=== PATIENT | female | born 1980 | race African-American/Black ===

== ENCOUNTER 2016-11-14 22:01 | Inpatient (IN) ==
--- NOTE | 2016-11-14 22:46 | PROVIDER DOCUMENTATION ---
HPI-Cardiac General - General Chief Complaint: Edema Stated Complaint: SWELLING Time Seen by Provider: 11/14/16 22:26 Allergies/Adverse Reactions: Patient Allergies Allergy/AdvReac Type Severity Reaction Status Date / Time No Known Allergies Allergy Verified 11/14/16 22:22 Home Medications: Home Medication List Medication Instructions Recorded Confirmed Last Taken Type NK [No Home Medications] 11/14/16 11/14/16 Unknown History - History of Present Illness-Cardiac Nature of Presenting Problem: 36 yof c/o generalized swelling and SOB. Pt's has edema from feet all the way to her abdomen. Pt has increased SOB since the swelling has continued to get worse over the past few weeks. Pt using mroe pillows at night when she sleeps. SOB worse when lying flat or with any activity. Quality of Pain: reports: none Onset/Duration: last week Timing: still present, getting worse Context/Activities at Onset: reports: none Modifying Factors: improves with: nothing Palpitation Quality: N/A History of arrythmia: reports: none Recent use of:: reports: no stimulants Associated Symptoms: reports: edema, shortness of breath Similar Symptoms Previously?: No Recently Seen Here or By Another Healthcare Provider: No Review of Systems - Adult - REVIEW OF SYSTEMS - ADULT Constitutional: reports: see HPI Eyes: reports: no symptoms reported Ears, Nose, Mouth & Throat: reports: no symptoms reported Cardiovascular: reports: see HPI, edema Respiratory: reports: see HPI, dyspnea on exertion, shortness of breath Gastrointestinal: reports: no symptoms reported Genitourinary: reports: no symptoms reported Musculoskeletal: reports: no symptoms reported Integumentary: reports: no symptoms reported Neurological: reports: no symptoms reported Psychiatric: reports: no symptoms reported Endocrine: reports: no symptoms reported Hematologic/Lymphatic: reports: no symptoms reported Allergic/Immunologic: reports: no symptoms reported All Other Systems: Reviewed and Negative Past History - Adult - PAST MEDICAL HISTORY-ADULT Review of Records: reports: Old Records Reviewed, Nursing Assessment Review, Medications Reviewed, Social history reviewed & non-contributory. Major Childhood Illnesses: reports: denies history Cardiovascular: reports: HTN, hyperlipidemia Respiratory: reports: asthma Gastrointestinal: reports: denies history Obstetrical/Gynecological: reports: denies history Genitourinary: reports: denies history Musculoskeletal: reports: denies history Neurological: reports: denies history Endocrine/Immune: reports: denies history Other Conditions: reports: denies history - PRIOR SURGERIES/PROCEDURES Surgical/Procedure History: reports: BTL - IMMUNIZATION STATUS Childhood Immunizations: See Nurse Assessment Flu Vaccine: See Nurse Assessment - FAMILY HISTORY Family History: reviewed, not pertinent Physical Exam-General - PHYSICAL EXAM-ADULT Initial Vital Signs Reviewed: Yes - CONSTITUTIONAL General Appearance: appears well, alert, no apparent distress - EYES Eyes: PERRL/EOMI, pink conjunctivae - HEAD, EARS, NOSE, MOUTH & THROAT HENMT: normocephalic/atraumatic, moist mucous membranes, normal ENT inspection - NECK Neck: non-tender, full range of motion, supple, normal inspection - RESPIRATORY Respiratory: chest non-tender, normal breath sounds, no pleuratic chest pain, no respiratory distress, no accessory muscle use, crackles - CARDIOVASCULAR Cardiovascular: normal peripheral pulses, regular rate, rhythm, no gallop, no JVD, no murmur, other (Edema generalized 4+ bilateral legs all the wy to abdomen.) - GASTROINTESTINAL (ABDOMEN) Abdominal Exam: normal bowel sounds, non tender, soft, no organomegaly, no pulsatile mass - LYMPHATIC Lymphatic: no adenopathy - MUSCULOSKELETAL Back Exam: normal inspection, no CVA tenderness, no vertebral tenderness Extremity: normal range of motion, non-tender, normal gait, swelling Peripheral Pulses: radial (R): 2+, radial (L): 2+, dorsalis-pedis (R): 2+, dorsalis-pedis (L): 2+ - SKIN Integumentary: normal color, normal turgor, warm/dry, swelling - NEUROLOGIC Neurologic: grossly normal, no motor/sensory deficits - PSYCHIATRIC Psych/Mental Status: normal mood/affect, normal thought content, normal thought process, oriented x 3 Progress - PLAN OF CARE/RESULTS Progress/Plan/Lab Results: Vital Signs - 8 hr 11/14/16 22:14 11/14/16 23:07 Temperature 97.5 F L Pulse Rate 95 H 89 Respiratory Rate 16 18 Blood Pressure 135/79 120/76 O2 Sat by Pulse Oximetry 90 L 98 Laboratory Results - last 24 hr 11/14/16 11/14/16 11/14/16 22:48 22:48 22:48 WBC RBC Hgb Hct MCV MCH MCHC RDW Std Deviation Plt Count MPV Immature Gran % (Auto) Neut % (Auto) Lymph % (Auto) Kle[place] % (Auto) Eos % (Auto) Baso % (Auto) Immature Gran # (Auto) Neut # (Auto) Lymph # (Auto) Kle[place] # (Auto) Eos # (Auto) Baso # (Auto) D-Dimer Sodium 138 Potassium 3.9 Chloride 96 L Carbon Dioxide 37 H Anion Gap 5 BUN 14 Creatinine 0.9 Estimated GFR/1.73 m2 > 60 BUN/Creatinine Ratio 16 Glucose 128 H Calculated Osmolality 278 Calcium 8.1 L Magnesium 2.4 Total Bilirubin < 0.15 L AST 9 L ALT 7 L Alkaline Phosphatase 91 Creatine Kinase 105 Troponin T < 0.010 Oqy-B-Nummwsxwflb Pept 1044 H Total Protein 6.7 Albumin 3.3 L Globulin 3.0 Albumin/Globulin Ratio 1.0 11/14/16 11/14/16 22:48 22:48 WBC 11.15 H RBC 4.24 Hgb 9.1 L Hct 33.8 L MCV 79.7 L MCH 21.5 L MCHC 26.9 L RDW Std Deviation 19.0 H Plt Count 286 MPV 9.2 Immature Gran % (Auto) 0.2 Neut % (Auto) 74.1 Lymph % (Auto) 19.4 L Kleberg % (Auto) 5.4 Eos % (Auto) 0.7 Baso % (Auto) 0.2 Immature Gran # (Auto) 0.02 Neut # (Auto) 8.27 H Lymph # (Auto) 2.16 Kleberg # (Auto) 0.60 H Eos # (Auto) 0.08 Baso # (Auto) 0.02 D-Dimer 0.92 H Sodium Potassium Chloride Carbon Dioxide Anion Gap BUN Creatinine Estimated GFR/1.73 m2 BUN/Creatinine Ratio Glucose Calculated Osmolality Calcium Magnesium Total Bilirubin AST ALT Alkaline Phosphatase Creatine Kinase Troponin T Msx-G-Djwerhnmzvl Pept Total Protein Albumin Globulin Albumin/Globulin Ratio Orders Category Date Time Status Cardiac Monitoring DIRECTED Care 11/14/16 22:31 Completed Oxygen Therapy- ED Nursing DIRECTED Care 11/14/16 22:31 Active Saline Loc NOW Care 11/14/16 22:31 Active CHEST-2 VIEWS [RAD] Stat Exams 11/14/16 22:31 Completed CBC WITH ELECTRONIC DIFF [HEME] Stat Lab 11/14/16 22:48 Completed CK PROFILE [SP CHEM] Stat Lab 11/14/16 22:48 Completed COMPREHENSIVE METABOLIC PANEL [CHEM] Stat Lab 11/14/16 22:[address] D-D[address]ER [address] [COAG] Stat Lab 11/14/16 22:48 Completed MAGNESIUM [CHEM] Stat Lab 11/14/16 22:48 Completed PRO B-NATRIURETIC PEPTIDE Stat Lab 11/14/16 22:48 Completed TROPONIN T Stat Lab 11/14/16 22:48 Completed Furosemide [Lasix] Med 11/15/16 00:10 Once 60 mg IV NOW ONE EKG [EKG] Stat Ther 11/14/16 22:31 Ordered Result Diagrams: 11/14/16 22:48 11/14/16 22:48 - EKG 1 Time of EKG reading by physician:: 22:43 EKG Read and Signed by:: Favian Deng EKG Interpretation (*Must complete 3 of following elements*): Abnormal Rate: 88 Rhythm: NSR Right BBB [place]: normal QRS: RBB [place] Interval: normal ST Wave: normal Prior EKG Comparison: unchanged from prior - XRAY 1 XRAY Study: Chest Impression: Normal Departure - Departure Date of Disposition Decision: 11/15/16 Time of Disposition Decision: 00:15 DIAGNOSIS: CHF (congestive heart failure) Qualifiers: Congestive heart failure type: unspecified congestive heart failure type Congestive heart failure chronicity: acute Qualified Code(s): I50.9 - Heart failure, unspecified Disposition: ADMITTED INPATIENT 09 Certified Medical Emergency: Emergent Condition: Stable Referrals and Follow-Ups: None,PCP [Primary Care Provider] - - Critical Care Note This patient required my direct & personal management of CC.: No Attestation - Physician/ MARI Attestation Patient care was provided by Advanced Practice Provider:: Yes Advanced Practice Provider:: Colin Bowen Advanced Practice Provider documentation review:: The Mid-level provider documentation, treatment plan and medical decision making was reviewed by the physician who agrees with all treatment and medical decision making by the MLP. The physician spent face to face time with patient:: Yes Advanced Practice Provider documentation review:: The physician spent face to face time with this patient and agrees with all MLP documentation, treatment, and medical decision making by the MLP. See provider notes for further information.
[2016-11-14 23:13] LABS: BASO% 0.2 % (0.0-0.8); EOS# 0.08 X1000 (0.0-0.7); EOS% 0.7 % (0.0-10.0); HEMATOCRIT 33.8 % (37.0-47.0); HEMOGLOBIN 9.1 g/dL (12.0-16.0); IMM GRAN# 0.02 X1000 (0.0-0.04); IMM GRAN% 0.2 % (0.0-0.5); LYMPH# 2.16 X1000 (1.2-3.4); LYMPH% 19.4 % (20.5-51.1); MCH 21.5 PG (27-31); MCHC 26.9 g/dL (33-37); MCV 79.7 FL (81-99); MONO% 5.4 % (1.7-9.3); MPV 9.2 FL (7.4-10.4); NEUT% 74.1 % (42.2-75.2); PLT 286 X1000 (130-400); RBC 4.24 XMIL (4.2-5.4)
[2016-11-14 23:14] LABS: MANUAL DIFF NEEDED? NO
[2016-11-14 23:16] LABS: AGAP 5; ALBUMIN 3.3 g/dL (3.5-5.0); ALKALINE PHOSPHATASE 91 U/L (32-104); BUN 14 mg/dL (8-22); CALCIUM 8.1 mg/dL (8.8-10.2); CHLORIDE 96 mmol/L (98-107); CK PROFILE 105 U/L (24-173); COSMO 278; GOT 9 U/L (10-30); GPT 7 U/L (10-36); MAGNESIUM 2.4 mg/dL (1.5-2.7); POTASSIUM 3.9 mmol/L (3.5-5.1); SODIUM 138 mmol/L (136-145); TCO2 37 mmol/L (25-35); TOTAL BILIRUBIN < 0.15 mg/dL (0.20-1.00); TOTAL PROTEIN 6.7 g/dL (6.3-8.3)
--- NOTE | 2016-11-14 23:48 | Diag Imaging Result Doc PS360 ---
EXAM: CHEST-2 VIEWS HISTORY: SOB TECHNIQUE: COMPARISON: 10/30/2016 FINDINGS: The lungs are well expanded. The heart remains enlarged. The vessels are not distended. No pneumonia. No pleural effusions. IMPRESSION: Stable cardiomegaly. Electronically signed by Vish Nur 11/14/2016 11:46 PM
[2016-11-15] MEDS ORDERED: LASIX IV ONE (00:10)
[2016-11-15 00:55] LABS: URINE CULTURE PL NEEDED? NO
[2016-11-15 01:03] LABS: BILIRUBIN URINE NEGATIVE (NEGATIVE); BLOOD URINE NEGATIVE (NEGATIVE); CLARITY CLEAR (CLEAR); COLOR YELLOW; GLUCOSE URINE NEGATIVE (NEGATIVE); LEUKOCYTES URINE NEGATIVE (NEGATIVE); NITRITE URINE NEGATIVE (NEGATIVE); PH URINE 6.5; PROTEIN URINE TRACE mg/dL (NEGATIVE); UROBILINOGEN URINE NORMAL
[2016-11-15 01:05] LABS: URINE SOURCE CATH
[2016-11-15 01:06] LABS: URINE EPITHELIAL CELLS <10 /HPF (<10); URINE RBC <10 /HPF (<10); URINE WBC <10 /HPF (<10)
--- NOTE | 2016-11-15 05:43 | EKG Report ---
Test Performed on : 11/14/2016 10:43:48 PM Test Reason : CHEST PAIN Blood Pressure : / mmHG Vent. Rate : 088 BPM Atrial Rate : 088 BPM P-R Int : 180 ms QRS Dur : 138 ms QT Int : 404 ms P-R-T Axes : 038 027 035 degrees QTc Int : 488 ms Normal sinus rhythm. Right bundle branch block Abnormal ECG When compared with ECG of 30-OCT-2016 20:17, No significant change was found Unconfirmed Result
[2016-11-15] MEDS: LASIX IV SCH ×2 (08:48→20:35)
[2016-11-15 10:38] LABS: MANUAL DIFF NEEDED? NO
[2016-11-15 10:53] LABS: BASO% 0.2 % (0.0-0.8); EOS# 0.06 X1000 (0.0-0.7); EOS% 0.7 % (0.0-10.0); HEMATOCRIT 35.2 % (37.0-47.0); HEMOGLOBIN 9.5 g/dL (12.0-16.0); IMM GRAN# 0.02 X1000 (0.0-0.04); IMM GRAN% 0.2 % (0.0-0.5); LYMPH# 1.74 X1000 (1.2-3.4); LYMPH% 19.4 % (20.5-51.1); MCH 21.4 PG (27-31); MCV 79.5 FL (81-99); MONO# 0.38 X1000 (0.11-0.59); MONO% 4.2 % (1.7-9.3); MPV 8.5 FL (7.4-10.4); NEUT% 75.3 % (42.2-75.2); PLT 292 X1000 (130-400); RBC 4.43 XMIL (4.2-5.4)
[2016-11-15 11:10] LABS: AGAP 6; ALBUMIN 3.6 g/dL (3.5-5.0); ALKALINE PHOSPHATASE 99 U/L (32-104); BUN 13 mg/dL (8-22); CALCIUM 8.2 mg/dL (8.8-10.2); CHLORIDE 96 mmol/L (98-107); COSMO 285; GOT 11 U/L (10-30); GPT 7 U/L (10-36); POTASSIUM 3.9 mmol/L (3.5-5.1); SODIUM 141 mmol/L (136-145); TCO2 38 mmol/L (25-35)
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
[2016-11-15] MEDS: ULTRAM PO PRN (18:52)
--- NOTE | 2016-11-15 19:37 | ECHO REPORT ---
ORDER DATE: 11/15/2016 INTERPRETING PHYSICIAN: Dr. Alaniz REQUESTING PHYSICIAN: Hospitalist service. CLINICAL INDICATIONS: A 36-year-old female with edema, shortness of breath, hypertension, morbidly obese, weighs 530 pounds. This study is technically very limited. Contrast was used to optimize visualization of cardiac structure. M-MODE MEASUREMENTS: Right ventricle: Dilated up to 4.0 cm. Left ventricle end diastole: 5.2 cm. Left ventricle end systole: 3.3 cm. Posterior wall: 1.2 cm. Interventricular septum: 1.2 cm. Left atrium: 5.5 cm. Aortic root: 2.4 cm. SUMMARY OF 2-DIMENSIONAL IMAGING: The global left ventricular systolic function appears to be normal. Ejection fraction visually estimated to be in the range of 60-65%. With the administration of Definity, the visualization of the apex was optimized and there was no evidence of wall motion abnormality. The right ventricle appears to be again moderately dilated to significantly dilated. The function appears to be grossly normal. The aortic valve appears to be grossly normal. Color flow mapping unremarkable. The mitral valve also appears to be grossly normal. Color flow mapping unremarkable. Pulse wave Doppler of mitral inflow shows relatively normal E/A ratio. Tissue Doppler of septal and lateral mitral annulus was not checked because of difficult study. The tricuspid valve shows a mild degree of regurgitation. The inferior vena cava was not visualized. Pulmonary pressure was elevated in the order of 48 mmHg. The pulmonic valve was grossly unremarkable. Doppler pattern of the pulmonic valve was within normal range. No pericardial effusion, masses or thrombus were noted. IMPRESSION: In summary, this study was technically difficult. The patient was morbidly obese. Definity was used for optimization of the cardiac structures. This study shows preserved left ventricular ejection fraction at 60-65%. There is a moderately enlarged to significantly enlarged right ventricle. There is pulmonary hypertension estimated at 48 mmHg. Valvular structures appear to be grossly normal. Clinical correlation is strongly recommended. cc: MD Silas Jacome MD [facility]
[2016-11-16 06:21] LABS: BASO% 0.1 % (0.0-0.8); EOS# 0.06 X1000 (0.0-0.7); EOS% 0.6 % (0.0-10.0); HEMATOCRIT 37.1 % (37.0-47.0); HEMOGLOBIN 9.7 g/dL (12.0-16.0); HEMOGLOBIN A1C 6.3 % (4.8-6.0); IMM GRAN# 0.05 X1000 (0.0-0.04); IMM GRAN% 0.5 % (0.0-0.5); LYMPH# 1.57 X1000 (1.2-3.4); LYMPH% 15.5 % (20.5-51.1); MCH 21.1 PG (27-31); MCHC 26.1 g/dL (33-37); MCV 80.7 FL (81-99); MONO# 0.51 X1000 (0.11-0.59); MPV 9.2 FL (7.4-10.4); NEUT% 78.3 % (42.2-75.2); PLT 295 X1000 (130-400)
[2016-11-16 06:24] LABS: MANUAL DIFF NEEDED? NO
[2016-11-16] MEDS: ULTRAM PO PRN (06:26)
[2016-11-16 06:28] LABS: AGAP 4; BUN 14 mg/dL (8-22); CALCIUM 8.4 mg/dL (8.8-10.2); CHLORIDE 95 mmol/L (98-107); COSMO 280; POTASSIUM 4.6 mmol/L (3.5-5.1); SODIUM 139 mmol/L (136-145); TCO2 40 mmol/L (25-35)
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
[2016-11-16] MEDS ORDERED: LASIX PO SCH ×2 (09:00→21:00)
[2016-11-16] MEDS ORDERED: NORVASC PO SCH (09:00)
[2016-11-16] MEDS ORDERED: ZOFRAN IV PRN ×2 (12:18→19:21)
--- NOTE | 2016-11-16 14:55 | Diag Imaging Result Doc PS360 ---
CHEST-PORTABLE - 11/16/2016 INDICATION: low O2 sat TECHNIQUE: COMPARISON: 11/14/2016 FINDINGS: Lung volumes are much lower. There is worsening cardiomegaly and pulmonary vascular congestion. There may be some pulmonary edema at this point. IMPRESSION: Overall worsening from prior. Electronically signed by Jackson Vyas 11/16/2016 2:53 PM
[2016-11-16] MEDS ORDERED: VERSED ONE (15:12)
[2016-11-16] MEDS ORDERED: DIPRIVAN 1% ONE (15:13)
[2016-11-16] MEDS ORDERED: DIPRIVAN 1% 3,000 MG/300 ML BOTTLE ONE (15:13)
[2016-11-16 15:28] LABS: BLOOD TYPE ARTERIAL; DRAW SITE R RADIAL; METHB 1.1 % (0.0-1.5); O2(CT) 10.1 mL/dL (15.0-23.0); SAMPLE BLOOD; SAO2 67.2 % (95.0-100.0); THB 11.2 g/dL (11.5-17.4)
[2016-11-16 15:32] LABS: pH(98.6) 7.07 (7.35-7.45)
[2016-11-16 15:33] LABS: PCO2(98.6) > 150 mmHg (35-45); PO2(98.6) 39 mmHg (60-100)
[2016-11-16 15:34] LABS: ALLEN TEST YES; MODALITY VENTIMASK
--- NOTE | 2016-11-16 15:55 | Diag Imaging Result Doc PS360 ---
CHEST-PORTABLE - 11/16/2016 at 1525 INDICATION: intubation TECHNIQUE: COMPARISON: 1434 FINDINGS: There is an endotracheal tube, the tip is probably at the linnea. Recommend retraction by about 2-3 cm. There is a nasogastric tube that is apparently folded over itself in the upper thoracic esophagus, the tip is directed back up towards the pharynx. There has been complete collapse of the right upper lobe. IMPRESSION: See findings. Electronically signed by Jackson Vyas 11/16/2016 3:53 PM
[2016-11-16] MEDS ORDERED: LASIX IV ONE (16:00)
[2016-11-16] MEDS ORDERED: LEVAQUIN 750 MG/D5W 750 MG/150 ML IVPB IV SCH (16:00)
[2016-11-16 16:10] LABS: AGAP 5; ALBUMIN 3.9 g/dL (3.5-5.0); ALKALINE PHOSPHATASE 117 U/L (32-104); BUN 13 mg/dL (8-22); CALCIUM 8.6 mg/dL (8.8-10.2); CHLORIDE 93 mmol/L (98-107); CK PROFILE 162 U/L (24-173); COSMO 282; GOT 12 U/L (10-30); GPT 8 U/L (10-36); MAGNESIUM 2.4 mg/dL (1.5-2.7); POTASSIUM 4.2 mmol/L (3.5-5.1); SODIUM 139 mmol/L (136-145); TCO2 41 mmol/L (25-35); TOTAL PROTEIN 8.3 g/dL (6.3-8.3)
[2016-11-16 16:14] LABS: BASO% 0.1 % (0.0-0.8); EOS# 0.08 X1000 (0.0-0.7); EOS% 0.4 % (0.0-10.0); HEMATOCRIT 40.5 % (37.0-47.0); HEMOGLOBIN 10.5 g/dL (12.0-16.0); IMM GRAN# 0.16 X1000 (0.0-0.04); IMM GRAN% 0.8 % (0.0-0.5); LYMPH# 2.95 X1000 (1.2-3.4); LYMPH% 15.6 % (20.5-51.1); MCH 21.2 PG (27-31); MCHC 25.9 g/dL (33-37); MCV 81.7 FL (81-99); MONO# 0.56 X1000 (0.11-0.59); MPV 8.5 FL (7.4-10.4); NEUT% 80.1 % (42.2-75.2); PLT 339 X1000 (130-400); RBC 4.96 XMIL (4.2-5.4)
[2016-11-16 16:19] LABS: MANUAL DIFF NEEDED? NO
[2016-11-16] MEDS ORDERED: AMIDATE ONE (16:35)
[2016-11-16] MEDS ORDERED: QUELICIN ONE (16:35)
--- NOTE | 2016-11-16 16:39 | EKG Report ---
Test Performed on : 11/16/2016 2:35:10 PM Test Reason : cat call Blood Pressure : / mmHG Vent. Rate : 095 BPM Atrial Rate : 095 BPM P-R Int : 166 ms QRS Dur : 144 ms QT Int : 396 ms P-R-T Axes : 062 148 046 degrees QTc Int : 497 ms Sinus rhythm. with fusion complexes Indeterminate axis Right bundle branch block Abnormal ECG When compared with ECG of 14-NOV-2016 22:43, fusion complexes are now present QRS axis shifted right T wave inversion no longer evident in Anterior leads Confirmed by Roderick Ely MD ([id number]) on 12/20/2016 7:27:56 PM
[2016-11-16 16:50] LABS: BILIRUBIN URINE NEGATIVE (NEGATIVE); BLOOD URINE NEGATIVE (NEGATIVE); CLARITY VERY CLOUDY (CLEAR); COLOR YELLOW; GLUCOSE URINE NEGATIVE (NEGATIVE); LEUKOCYTES URINE NEGATIVE (NEGATIVE); NITRITE URINE NEGATIVE (NEGATIVE); PROTEIN URINE 2+(100 mg/dL) mg/dL (NEGATIVE); SP GRAVITY URINE 1.025; UROBILINOGEN URINE NORMAL
[2016-11-16 16:51] LABS: UR AMPHETAMINES QUAL NONE DETECTED (NONE DETECT); UR BARBITUATES QUAL NONE DETECTED (NONE DETECT); UR BENZODIAZEPIN QUAL NONE DETECTED (NONE DETECT); UR CANNABINOIDS QUAL NONE DETECTED (NONE DETECT); UR COCAINE QUAL NONE DETECTED (NONE DETECT); UR MDMA QUAL NONE DETECTED (NONE DETECT); UR METHADONE QUAL NONE DETECTED (NONE DETECT); UR METHAMPHETAMINE QUAL NONE DETECTED (NONE DETECT); UR OPIATES QUAL NONE DETECTED (NONE DETECT); UR OXYCODONE QUAL NONE DETECTED (NONE DETECT); UR PCP QUAL NONE DETECTED (NONE DETECT); UR TCA QUAL NONE DETECTED (NONE DETECT)
[2016-11-16 17:00] LABS: BE 17.1 mmoll (-3.0-3.0); BLOOD TYPE ARTERIAL; DRAW SITE R RADIAL; METHB 1.4 % (0.0-1.5); O2(CT) 13.5 mL/dL (15.0-23.0); PO2(98.6) 112 mmHg (60-100); SAMPLE BLOOD; SAO2 99.6 % (95.0-100.0); SRATE 18 BPM; THB 9.9 g/dL (11.5-17.4); TVOL 650 mL; pH(98.6) 7.41 (7.35-7.45)
[2016-11-16] MEDS ORDERED: DOXYCYCLINE 100 MG in NS 250 ML IV SCH (17:00)
[2016-11-16 17:06] LABS: URINE CAST GRANULAR PRESENT /LPF; URINE CRYSTAL NONE SEEN /HPF; URINE CULTURE PL NEEDED? YES; URINE EPITHELIAL CELLS >10 /HPF (<10); URINE SOURCE CATH; URINE WBC <10 /HPF (<10)
[2016-11-16 17:09] LABS: MODALITY VENTILATOR; PCO2(98.6) 70 mmHg (35-45)
[2016-11-16 17:10] LABS: ALLEN TEST YES
[2016-11-16] MEDS: DIPRIVAN 1% 1,000 MG/100 ML BOTTLE IV SCH ×8 (17:15→23:59)
[2016-11-16] MEDS ORDERED: LOVENOX SUBQ SCH (17:15)
--- NOTE | 2016-11-16 17:15 | Diag Imaging Result Doc PS360 ---
CHEST-PORTABLE - 11/16/2016 1646 INDICATION: INTUBATION TECHNIQUE: COMPARISON: 1525 FINDINGS: The misplaced nasogastric tube has been removed. The endotracheal tube is in good position now at about T3-T4. The right upper lobe collapse has resolved. There is cardiomegaly. Lungs are essentially clear now. IMPRESSION: Improvement from prior. Electronically signed by Jackson Vyas 11/16/2016 5:12 PM
[2016-11-16] MEDS ORDERED: HEPARIN 25,000 UNITS/D5W 25,000 UNIT/250 ML IV.SOLN IV SCH (17:30)
[2016-11-16] MEDS ORDERED: ULTRAM PO PRN (19:21)
[2016-11-16] MEDS: PROTONIX IV SCH (21:40)
[2016-11-16] MEDS: SODIUM CHLORIDE 0.9% INJ SCH (21:40)
[2016-11-17] MEDS: HEPARIN 25,000 UNITS/D5W 25,000 UNIT/250 ML IV.SOLN IV SCH ×2 (00:21→10:00)
[2016-11-17] MEDS ORDERED: LASIX IV ONE (01:18)
[2016-11-17] MEDS: DIPRIVAN 1% 1,000 MG/100 ML BOTTLE IV SCH ×19 (01:20→23:10)
[2016-11-17] MEDS ORDERED: LASIX ONE (01:28)
[2016-11-17 05:00] LABS: ALLEN TEST YES; BE 17.5 mmoll (-3.0-3.0); BLOOD TYPE ARTERIAL; DRAW SITE R RADIAL; O2(CT) 16.8 mL/dL (15.0-23.0); PCO2(98.6) 47 mmHg (35-45); SAMPLE BLOOD; SAO2 90.6 % (95.0-100.0); THB 13.6 g/dL (11.5-17.4); TVOL 600 mL
[2016-11-17 05:01] LABS: pH(98.6) 7.56 (7.35-7.45)
[2016-11-17 05:02] LABS: MODALITY VENTILATOR; PO2(98.6) 49 mmHg (60-100); SRATE 16 BPM
[2016-11-17 05:24] LABS: BASO% 0.1 % (0.0-0.8); EOS# 0.05 X1000 (0.0-0.7); EOS% 0.4 % (0.0-10.0); HEMATOCRIT 36.1 % (37.0-47.0); HEMOGLOBIN 9.9 g/dL (12.0-16.0); IMM GRAN# 0.07 X1000 (0.0-0.04); IMM GRAN% 0.6 % (0.0-0.5); LYMPH# 1.56 X1000 (1.2-3.4); LYMPH% 13.3 % (20.5-51.1); MANUAL DIFF NEEDED? NO; MCH 21.5 PG (27-31); MCHC 27.4 g/dL (33-37); MCV 78.3 FL (81-99); MONO# 0.53 X1000 (0.11-0.59); MONO% 4.5 % (1.7-9.3); MPV 9.4 FL (7.4-10.4); NEUT% 81.1 % (42.2-75.2); PLT 302 X1000 (130-400); RBC 4.61 XMIL (4.2-5.4)
[2016-11-17] MEDS ORDERED: DOXYCYCLINE 100 MG in NS 250 ML IV SCH (06:00)
[2016-11-17 06:09] LABS: AGAP 12; ALBUMIN 3.2 g/dL (3.5-5.0); ALKALINE PHOSPHATASE 96 U/L (32-104); BUN 15 mg/dL (8-22); CALCIUM 9.1 mg/dL (8.8-10.2); CHLORIDE 92 mmol/L (98-107); COSMO 284; GOT 21 U/L (10-30); GPT 8 U/L (10-36); POTASSIUM 3.4 mmol/L (3.5-5.1); SODIUM 142 mmol/L (136-145); TCO2 38 mmol/L (25-35); TOTAL BILIRUBIN 0.52 mg/dL (0.20-1.00)
--- NOTE | 2016-11-17 07:22 | Diag Imaging Result Doc PS360 ---
EXAM: CHEST-PORTABLE INDICATION: vent, follow up TECHNIQUE: One view COMPARISON: 11/16/2016 FINDINGS: ET tube is in stable position. Inspiration is suboptimal. There has been interval reaeration of the right upper lobe. Pulmonary venous congestion and interstitial edema is similar to the previous study. No new consolidation is identified. Cardiac silhouette is stable. IMPRESSION: Interval re-aeration of the right upper lobe. Stable chest, otherwise. Electronically signed by Clovis Angelo 11/17/2016 7:20 AM
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
[2016-11-17] MEDS: DUONEB (A & A) INH SCH ×3 (08:03→21:55)
--- NOTE | 2016-11-17 08:07 | PROGRESS NOTE ---
DATE: 11/16/2016 SUBJECTIVE: Patient currently is intubated. She had a very acute change in her respiratory status. This morning around 7-8 a.m. she was awake, alert, lying flat in the bed in no respiratory distress. Her daughter left to go molded goods spot picker her grandchild. On upon returning she noted that Ms. Keen was very difficult to arouse, was sitting up and slumped over in the bed and called for help. The nursing staff noted that her O2 saturation was very low and called for respiratory, and subsequently Ms. Keen was intubated. PHYSICAL EXAMINATION: Vital Signs: Temperature 98, pulse 98. BP 163/78. O2 saturation was actually listed at 98% on 2 L prior to this event. Currently 92% on 100% mechanical ventilation. General: Patient is a morbidly obese female. Currently she is sedated and intubated. However, prior to sedation she was very difficult to arouse. She did not follow commands per the staff and was very somnolent. CV: Regular rate. Chest: Equal breath sounds bilaterally on mechanical ventilation. No apparent wheezing. No crackles. Abdomen: Soft. Extremities: Moves all extremities. No change in the edema in her lower extremities. Neurologic: Unable to assess currently as she is sedated. LABS: WBCs 10. ABG prior to intubation 7.07, pCO2 150, pO2 39. After intubation pH 7.4, pCO2 70, pO2 112 on 100% FiO2. CMP unchanged. ASSESSMENT: 1. Acute respiratory failure. Patient had an episode of emesis this morning. Certainly could have aspirated. There was no witness to the 2nd emesis right prior to this event, although it certainly may have occurred. She has an elevated D-dimer. Certainly a pulmonary emboli could be the cause. However she is too large to have a CT scan and too large for a V/Q to be useful. 2. Acute hypercapnic respiratory failure requiring mechanical intubation. 3. Acute hypoxic respiratory failure. 4. Leukocytosis likely more stress-related. 5. Morbid obesity. Certainly expect Ms. Keen has sleep apnea and Pickwickian syndrome. 6. Elevated BNP. In fact her BNP is actually improving. It was 1000 earlier on upon admission, currently is 546. Her recent echo does not demonstrate any congestive heart failure. In fact, her EF is estimated at 60-65%, but given her age it is certainly a very difficult exam. 7. Abnormal chest x-ray. Immediately prior to intubation, her lung volumes were much less. She had pulmonary edema developing. Immediately post intubation she had complete collapse of the right upper lobe that was resolved after the ET tube was moved back. After intubation, her lung volumes improved. Pulmonary edema appeared to resolve. PLAN: Forty-five minutes was spent in total care. Patient is currently stable. She is no longer in any respiratory distress, although she is intubated. Blood pressures are stable. Certainly would leave her intubated at the present time. We did start her on heparin protocol and it is possible that a pulmonary emboli could have triggered this event as noted due to her morbid obesity. She is too large for a CT scan and a V/Q scan. We will transfer her to [facility]. We will consult pulmonology. We did start her on antibiotics for the possibility of an aspiration event causing this. She was given 1 dose of IV Lasix. We will hold after this and follow. Discussed with the family and they [place] understand and are in agreement to transfer. cc: Kenneth Chin MD
[2016-11-17] MEDS ORDERED: HEPARIN 25,000 UNITS/D5W 25,000 UNIT/250 ML IV.SOLN IV SCH (10:15)
[2016-11-17] MEDS: DUONEB (A & A) INH PRN ×2 (11:03→19:07)
[2016-11-17] MEDS: NORVASC PO SCH (11:13)
[2016-11-17] MEDS: LASIX IV SCH ×2 (11:21→17:06)
[2016-11-17] MEDS ORDERED: NS 250 ML ONE (11:21)
--- NOTE | 2016-11-17 11:28 | CONSULTATION ---
DATE OF CONSULTATION: 11/17/2016 REQUESTING PHYSICIAN: Dr. Mo Harden. REASON FOR CONSULTATION: Respiratory failure. HISTORY OF PRESENT ILLNESS: Ms. Keen is a 36-year-old, black female with super obesity (BMI is 84), who presented to [facility] emergency room 11/15/2016 complaining of increasing shortness of breath and increasing edema from her feet to her abdomen. This has been progressive over the last several weeks and she was having to sleep upright. Initial chest x-ray revealed cardiomegaly. The patient was admitted to the hospital. An echocardiogram was performed, which revealed moderate pulmonary hypertension with a PA systolic of 48, but with a study which was significantly limited due to body habitus. Patient was initiated on diuretics. Patient became unresponsive to patient's family and staff. Arterial blood gas revealed a pH of 7.07, pCO2 greater than 50 and a PO2 of 39. The patient was intubated and subsequently transferred to this hospital. Post intubation x-ray revealed atelectasis of the right upper lobe but this resolved on subsequent films. PAST MEDICAL HISTORY: 1. Obesity, as per above. 2. Diabetes mellitus. 3. Hypertension. SOCIAL HISTORY: The patient is a daily tobacco smoker, per nursing intake sheet. FAMILY HISTORY: Positive for asthma but otherwise negative. REVIEW OF SYSTEMS: Cannot be obtained. PHYSICAL EXAMINATION: General: Reveals an obese, black female, who is sedated on propofol and appears comfortable on mechanical ventilation. Vital Signs: Blood pressure 110/78, heart rate 84, respiration rate 22, oxygen saturation 94%. HEENT: Pupils are equal and reactive. Oropharynx reveals increase in clear secretions. Neck: Thick but supple. Chest: Reveals scattered rhonchi bilaterally. Cardiac: Distant heart sounds. Normal S1, normal S2. Abdomen: Obese and soft. Extremities: Reveal extensive edema to the legs. LABORATORIES: Chest x-ray reveals generous cardiac silhouette, increased interstitial markings consistent with pulmonary vascular congestion/edema. Arterial blood gas this morning, pH 7.56, pCO2 of 47, PO2 of 49. White blood count 11.8, hemoglobin 9.9. MCV is low at 78.3, platelet count 302,000. IMPRESSION: A 36-year-old with obesity, Pickwickian status, hypoxemic and hypercapnic respiratory failure, pulmonary hypertension, with acute on chronic cor pulmonale and fluid overload. The patient may have a component of bronchitis. The patient is also an active smoker. RECOMMENDATIONS: 1. Continue ventilatory support until the patient begins diuresing. 2. Check sputum for culture and sensitivity. 3. Routine bronchodilator for pulmonary hygiene. 4. We will initiate tube feeds to prevent protein malnutrition if it appears her ventilator course will be prolonged. 5. Routine gastric acid suppression to prevent stress gastritis. 6. Deep venous thrombosis prophylaxis per the hospitalist service. 7. Smoking cessation. 8. Long-term, her survival will depend on weight loss. cc: Antonio Arauz MD
[2016-11-17] MEDS: MORPHINE IV PRN ×2 (12:38→14:38)
[2016-11-17] MEDS ORDERED: DIPRIVAN 1% ONE (14:11)
[2016-11-17] MEDS ORDERED: QUELICIN (DOSE) ONE (14:11)
--- NOTE | 2016-11-17 14:38 | Diag Imaging Result Doc PS360 ---
EXAM: CHEST-1 VIEW - 11/17/2016 HISTORY: ET tube replacement TECHNIQUE: Portable chest 1405 COMPARISON: 11/17/2016 at 0520 FINDINGS: There is an endotracheal tube with its tip approximately 4.5 cm above the linnea. There is been apparent interval insertion of PICC line from the right, which can be followed to the expected location of the distal superior vena cava. There is stable cardiomegaly. There is been apparent mild decrease in pulmonary edema. There is no pneumothorax identified. IMPRESSION: Tip of endotracheal tube approximately 4.5 cm above the linnea. Tip of PICC line apparently distal superior vena cava. Stable cardiomegaly. Mild decrease in pulmonary edema. Electronically signed by Edwin Zhao 11/17/2016 2:36 PM
[2016-11-17] MEDS: LEVAQUIN 750 MG/D5W 750 MG/150 ML IVPB IV SCH (16:00)
[2016-11-17] MEDS: LOVENOX SUBQ SCH (17:11)
[2016-11-17] MEDS: PROTONIX IV SCH (21:58)
[2016-11-17] MEDS: SODIUM CHLORIDE 0.9% INJ SCH (21:58)
[2016-11-18] MEDS: DIPRIVAN 1% 1,000 MG/100 ML BOTTLE IV SCH ×17 (00:21→22:13)
[2016-11-18] MEDS: LASIX IV SCH ×3 (02:35→17:15)
[2016-11-18] MEDS: DUONEB (A & A) INH PRN ×3 (03:18→19:53)
[2016-11-18] MEDS: LOVENOX SUBQ SCH ×2 (03:41→16:46)
[2016-11-18 04:55] LABS: ALLEN TEST YES; BE 18.9 mmoll (-3.0-3.0); BLOOD TYPE ARTERIAL; DRAW SITE R RADIAL; METHB 1.3 % (0.0-1.5); O2(CT) 12.6 mL/dL (15.0-23.0); PO2(98.6) 84 mmHg (60-100); SAMPLE BLOOD; SAO2 97.7 % (95.0-100.0); SRATE 14 BPM; THB 9.3 g/dL (11.5-17.4); TVOL 600 mL; pH(98.6) 7.54 (7.35-7.45)
[2016-11-18 04:56] LABS: PCO2(98.6) 51 mmHg (35-45)
[2016-11-18 04:57] LABS: MODALITY VENTILATOR
[2016-11-18 07:23] LABS: HEMATOCRIT 34.7 % (37.0-47.0); MCH 21.5 PG (27-31); MCHC 28.8 g/dL (33-37); MCV 74.6 FL (81-99); MPV 9.3 FL (7.4-10.4); RBC 4.65 XMIL (4.2-5.4)
[2016-11-18 07:56] LABS: MAGNESIUM 1.8 mg/dL (1.5-2.7)
[2016-11-18 07:59] LABS: AGAP 16; ALBUMIN 3.3 g/dL (3.5-5.0); ALKALINE PHOSPHATASE 102 U/L (32-104); BUN 13 mg/dL (8-22); CALCIUM 8.3 mg/dL (8.8-10.2); CHLORIDE 90 mmol/L (98-107); COSMO 284; GOT 17 U/L (10-30); GPT 7 U/L (10-36); POTASSIUM 3.2 mmol/L (3.5-5.1); SODIUM 142 mmol/L (136-145); TCO2 36 mmol/L (25-35); TOTAL BILIRUBIN 0.44 mg/dL (0.20-1.00); TOTAL PROTEIN 7.2 g/dL (6.3-8.3)
--- NOTE | 2016-11-18 07:59 | Diag Imaging Result Doc PS360 ---
EXAM: CHEST-PORTABLE - 11/18/2016 HISTORY: vent, follow up TECHNIQUE: Portable chest 0530 COMPARISON: 11/17/2016 at 1405 FINDINGS: Endotracheal tube and PICC remain in place. There is stable cardiomegaly. There has been apparent decrease in basilar edema and/or atelectasis. There is mild residual edema compromise at the right base. Central vascular markings remain mildly prominent. There is no pneumothorax identified. IMPRESSION: Some decrease in basilar edema and/or atelectasis. Electronically signed by Edwin Zhao 11/18/2016 7:56 AM
[2016-11-18] MEDS: NORVASC PO SCH (08:14)
[2016-11-18] MEDS: DUONEB (A & A) INH SCH ×3 (08:25→23:51)
[2016-11-18] MEDS ORDERED: POTASSIUM CHLORIDE 40 MEQ/SWI 40 MEQ/100 ML IVPB IV ONE (08:26)
--- NOTE | 2016-11-18 08:44 | PROGRESS NOTE ---
DATE: 11/18/2016 SUBJECTIVE: Intubated and sedated. Appears comfortable. She is getting quite a bit of propofol. She is not getting her Norvasc. She is n.p.o. She is getting morphine 2 mg IV q. hour as needed, Protonix 40 mg IV 24 hours. OBJECTIVE: Vital signs: Temperature is 98.1 degrees, pulse 85, respirations 14, blood pressure 128/67. Eyes: Pupils are equal and round. Lungs: Clear in all lung constantino. Cardiovascular exam: Regular rhythm and rate without murmur or S3. Abdomen: Soft. Skin: Warm and dry. Blood sugars 517 and 499. Urine output 1600 mL. LABS: White count 9710, hematocrit 34, platelet count 313,000. Sodium 142, potassium 3.2, chloride 90, bicarbonate 36, BUN 13, creatinine 1.2. ASSESSMENT AND PLAN: 1. Respiratory failure. Chest x-ray shows decrease in basilar edema or atelectasis. Will try and wean as able. She is on quite a bit of propofol. 2. Diabetes mellitus type 2. Sugars are quite high. Continue and try to get those down. 3. Morbid obesity. cc: Mo Harden MD
[2016-11-18] MEDS: FENTANYL 1,000 MICROGM in NS 80 ML IV SCH (10:21)
[2016-11-18] MEDS: LEVAQUIN 750 MG/D5W 750 MG/150 ML IVPB IV SCH (16:00)
[2016-11-18] MEDS: PROTONIX IV SCH (22:13)
[2016-11-18] MEDS: SODIUM CHLORIDE 0.9% INJ SCH (22:13)
[2016-11-19] MEDS: DIPRIVAN 1% 1,000 MG/100 ML BOTTLE IV SCH ×14 (00:01→22:41)
[2016-11-19] MEDS ORDERED: LASIX IV SCH (03:15)
[2016-11-19] MEDS: LOVENOX SUBQ SCH ×2 (03:27→16:36)
[2016-11-19] MEDS: FENTANYL 1,000 MICROGM in NS 80 ML IV SCH ×3 (03:50→17:15)
[2016-11-19 04:40] LABS: ALLEN TEST YES; BE 19.6 mmoll (-3.0-3.0); BLOOD TYPE ARTERIAL; DRAW SITE R RADIAL; PO2(98.6) 87 mmHg (60-100); SAMPLE BLOOD; SRATE 14 BPM; THB 10.4 g/dL (11.5-17.4); TVOL 600 mL; pH(98.6) 7.45 (7.35-7.45)
[2016-11-19 04:41] LABS: MODALITY VENTILATOR; PCO2(98.6) 67 mmHg (35-45)
[2016-11-19 05:04] LABS: HEMOGLOBIN 10.2 g/dL (12.0-16.0); MCH 21.7 PG (27-31); MCHC 28.3 g/dL (33-37); MCV 76.6 FL (81-99); MPV 9.3 FL (7.4-10.4); RBC 4.7 XMIL (4.2-5.4)
[2016-11-19 05:22] LABS: AGAP 13; ALBUMIN 3.3 g/dL (3.5-5.0); ALKALINE PHOSPHATASE 107 U/L (32-104); BUN 13 mg/dL (8-22); CALCIUM 8.7 mg/dL (8.8-10.2); CHLORIDE 93 mmol/L (98-107); COSMO 287; GOT 21 U/L (10-30); GPT 9 U/L (10-36); POTASSIUM 3.4 mmol/L (3.5-5.1); SODIUM 144 mmol/L (136-145); TCO2 38 mmol/L (25-35); TOTAL BILIRUBIN 0.62 mg/dL (0.20-1.00); TOTAL PROTEIN 7.6 g/dL (6.3-8.3)
--- NOTE | 2016-11-19 07:37 | Diag Imaging Result Doc PS360 ---
EXAM: CHEST-PORTABLE - 11/19/2016 HISTORY: vent, follow up TECHNIQUE: Portable chest 0515 COMPARISON: 11/18/2016 FINDINGS: Endotracheal tube remains in place with its tip approximately 6 cm above the linnea. PICC remains in place. There is stable cardiomegaly. There is interval decrease in edema or atelectasis at the right base. There has been apparent decrease in central vascular congestion. There is no pneumothorax seen. IMPRESSION: Decrease in right basilar edema or atelectasis. Decrease in central vascular congestion. Electronically signed by Edwin Zhao 11/19/2016 7:35 AM
[2016-11-19] MEDS: DUONEB (A & A) INH SCH ×3 (08:01→22:36)
[2016-11-19] MEDS ORDERED: POTASSIUM CHLORIDE 40 MEQ/SWI 40 MEQ/100 ML IVPB IV ONE ×2 (08:14→14:00)
[2016-11-19] MEDS: NORVASC PO SCH (08:20)
--- NOTE | 2016-11-19 09:23 | PROGRESS NOTE ---
DATE: 11/19/2016 SUBJECTIVE: She is on the ventilator. We have been able to decrease the Diprivan and added fentanyl. Still requiring high sedation. Totally vent dependent. OBJECTIVE: Vital signs: Temp 96.9 degrees, pulse 77, respirations 20, blood pressure 133/84. HEENT: Pupils are equal, round. Lungs: Clear in all lung constantino. Cardiovascular: Regular rhythm and rate without murmur or S3. Abdomen: Soft. Skin: Warm and dry. Intake and output: She has had 1200 mL urine output. LABORATORY: White count 9,420, hematocrit 36, platelet count 281,000. Chemistry: Sodium 144, potassium 3.4, chloride 90, BUN 13, creatinine 1.1, magnesium 1.8. Chest x-ray: Decreased right basilar edema, atelectasis, decrease in central venous vascular congestion. ASSESSMENT AND PLAN: 1. A 36-year-old with Pickwickian status, hypoxemia hypercapnic respiratory failure, pulmonary hypertension, acute on chronic cor pulmonale, fluid overload. Patient seems to be improving radiographically and clinically. May have a component of bronchitis. The patient is also an active smoker. Continue ventilatory support; wean as able. Continue to diurese. Bronchodilators, pulmonary hygiene. 2. May initiate tube feedings to prevent protein malnutrition on the ventilator. 3. Gastric acid suppression. 4. Morbid obesity. 5. Smoking cessation discussed. Nicotine patch recommended. 6. Review again of her labs. Supplement some potassium. Good urine output. 7. Review of her orders. I do not see any change at this point. She is getting Lasix 60 mg IV q.8. Will give her some more potassium. Will probably repeat this 40 mg x2 today. cc: Mo Harden MD
[2016-11-19] MEDS ORDERED: FENTANYL 1,000 MICROGM in NS 80 ML IV SCH ×2 (09:45→16:48)
[2016-11-19] MEDS: D5W 1,000 ML IV SCH (12:00)
[2016-11-19] MEDS: LASIX IV SCH ×3 (12:49→23:21)
[2016-11-19] MEDS: MORPHINE IV PRN (16:35)
[2016-11-19] MEDS: LEVAQUIN 750 MG/D5W 750 MG/150 ML IVPB IV SCH (16:35)
[2016-11-19] MEDS: SODIUM CHLORIDE 0.9% INJ SCH (23:21)
[2016-11-19] MEDS: PROTONIX IV SCH (23:21)
[2016-11-20] MEDS: DIPRIVAN 1% 1,000 MG/100 ML BOTTLE IV SCH ×6 (02:12→08:47)
[2016-11-20] MEDS: MORPHINE IV PRN ×2 (02:13→08:47)
[2016-11-20] MEDS: FENTANYL 1,000 MICROGM in NS 80 ML IV SCH ×2 (02:58→14:29)
[2016-11-20] MEDS: DUONEB (A & A) INH PRN ×3 (03:12→13:32)
[2016-11-20] MEDS: D5W 1,000 ML IV SCH (03:58)
[2016-11-20] MEDS: LOVENOX SUBQ SCH ×2 (03:58→16:05)
[2016-11-20 04:52] LABS: ALLEN TEST YES; BE 15.3 mmoll (-3.0-3.0); BLOOD TYPE ARTERIAL; DRAW SITE R RADIAL; PO2(98.6) 57 mmHg (60-100); SAMPLE BLOOD; SAO2 93.6 % (95.0-100.0); SRATE 14 BPM; TVOL 600 mL; pH(98.6) 7.48 (7.35-7.45)
[2016-11-20 04:53] LABS: MODALITY VENTILATOR; PCO2(98.6) 55 mmHg (35-45)
[2016-11-20] MEDS: LASIX IV SCH ×3 (05:19→17:54)
[2016-11-20 06:02] LABS: HEMATOCRIT 35.7 % (37.0-47.0); HEMOGLOBIN 9.9 g/dL (12.0-16.0); MCH 21.8 PG (27-31); MCHC 27.7 g/dL (33-37); MCV 78.6 FL (81-99); MPV 9.5 FL (7.4-10.4); RBC 4.54 XMIL (4.2-5.4)
[2016-11-20 06:27] LABS: AGAP 13; ALBUMIN 3.2 g/dL (3.5-5.0); ALKALINE PHOSPHATASE 112 U/L (32-104); BUN 14 mg/dL (8-22); CALCIUM 9.2 mg/dL (8.8-10.2); CHLORIDE 92 mmol/L (98-107); COSMO 282; GOT 35 U/L (10-30); GPT 20 U/L (10-36); SODIUM 141 mmol/L (136-145); TCO2 36 mmol/L (25-35); TOTAL BILIRUBIN 0.75 mg/dL (0.20-1.00)
--- NOTE | 2016-11-20 07:18 | Diag Imaging Result Doc PS360 ---
EXAM: CHEST-PORTABLE HISTORY: vent, follow up TECHNIQUE: Portable AP COMPARISON: 11/19/2016 FINDINGS: The endotracheal tube remains in good position. No change in the right subclavian portacatheter. The heart remains enlarged. There is central vascular prominence. No pleural effusions identified. The overall appearance is similar to that of the prior exam. IMPRESSION: No interval improvement. Electronically signed by Vish Nur 11/20/2016 7:15 AM
[2016-11-20] MEDS: DUONEB (A & A) INH SCH ×3 (07:49→19:38)
[2016-11-20] MEDS: NORVASC PO SCH (08:02)
[2016-11-20 10:47] LABS: ALLEN TEST YES; BE 16.7 mmoll (-3.0-3.0); BLOOD TYPE ARTERIAL; DRAW SITE R RADIAL; METHB 1.1 % (0.0-1.5); O2(CT) 14.6 mL/dL (15.0-23.0); PO2(98.6) 70 mmHg (60-100); SAMPLE BLOOD; SAO2 95.6 % (95.0-100.0); THB 11.2 g/dL (11.5-17.4)
[2016-11-20 10:49] LABS: MODALITY VENTILATOR; PCO2(98.6) 72 mmHg (35-45)
--- NOTE | 2016-11-20 15:56 | PROGRESS NOTE ---
DATE: 11/20/2016 SUBJECTIVE: Ms. Keen still is sedated, ventilatory dependent. OBJECTIVE: Vital signs: Remains afebrile, temp 97.6 degrees, pulse 80, respirations 21, blood pressure 111/76. Lungs: Clear anterolateral. Cardiovascular: Regular rhythm and rate without murmur or S3. Abdomen: Soft. Skin: Warm and dry. Intake and output: Urine output was over 5 L. LAB: Unremarkable. CBC: Hematocrit stable at 35. Chemistry is unremarkable. ASSESSMENT AND PLAN: 1. Respiratory failure. Chest x-ray: Endotracheal tube in good position. No changes in the right subclavian port catheter. No interval improvement noted. There is central vascular prominence. The patient is an active smoker. Continue to try and wean. It has been very slow. We have had to go up on her FiO2 yesterday. Continue pulmonary hygiene and bronchodilators. 2. May need to initiate tube feedings. 3. Gas acid suppression, 4. Morbid obesity. REVIEW OF PRESENT ORDERS: I do not see any change. Still on Levaquin. Patient given fentanyl drip to help with analgesia. On propofol. Potassium supplemented. Electrolytes look good. cc: Mo Harden MD
[2016-11-20] MEDS: LEVAQUIN 750 MG/D5W 750 MG/150 ML IVPB IV SCH (16:04)
[2016-11-20] MEDS ORDERED: CHLORASEPTIC SPRAY MT PRN (20:29)
[2016-11-20] MEDS: PROTONIX IV SCH (21:09)
[2016-11-21] MEDS: LASIX IV SCH ×6 (00:02→23:59)
[2016-11-21] MEDS: MORPHINE IV PRN (00:02)
[2016-11-21] MEDS: FENTANYL 1,000 MICROGM in NS 80 ML IV SCH (00:44)
[2016-11-21] MEDS: LOVENOX SUBQ SCH ×2 (04:18→15:06)
[2016-11-21 05:42] LABS: ALLEN TEST YES; BE 14.2 mmoll (-3.0-3.0); BLOOD TYPE ARTERIAL; DRAW SITE L BRACHIAL; METHB 1.2 % (0.0-1.5); O2(CT) 15.7 mL/dL (15.0-23.0); PO2(98.6) 108 mmHg (60-100); SAMPLE BLOOD; SAO2 98.9 % (95.0-100.0); THB 11.5 g/dL (11.5-17.4); pH(98.6) 7.44 (7.35-7.45)
[2016-11-21 05:44] LABS: MODALITY BI PAP; PCO2(98.6) 60 mmHg (35-45)
[2016-11-21 05:46] LABS: HEMATOCRIT 38.8 % (37.0-47.0); HEMOGLOBIN 10.8 g/dL (12.0-16.0); MCH 22.2 PG (27-31); MCHC 27.8 g/dL (33-37); MCV 79.8 FL (81-99); MPV 9.4 FL (7.4-10.4); RBC 4.86 XMIL (4.2-5.4)
[2016-11-21 06:11] LABS: AGAP 10; ALBUMIN 3.7 g/dL (3.5-5.0); ALKALINE PHOSPHATASE 120 U/L (32-104); BUN 17 mg/dL (8-22); CALCIUM 9.9 mg/dL (8.8-10.2); CHLORIDE 90 mmol/L (98-107); COSMO 277; GOT 34 U/L (10-30); GPT 22 U/L (10-36); POTASSIUM 4.2 mmol/L (3.5-5.1); SODIUM 138 mmol/L (136-145); TCO2 38 mmol/L (25-35); TOTAL BILIRUBIN 0.55 mg/dL (0.20-1.00); TOTAL PROTEIN 8.6 g/dL (6.3-8.3)
--- NOTE | 2016-11-21 07:25 | Diag Imaging Result Doc PS360 ---
EXAM: CHEST-PORTABLE HISTORY: vent, follow up TECHNIQUE: AP portable erect at 0545 COMMENT: There is cardiomegaly. The endotracheal tube has apparently been removed since the previous study. There is apparent mild interstitial pulmonary edema in both lung bases. IMPRESSION: Cardiomegaly and mild pulmonary edema. Electronically signed by Merlin Plummer 11/21/2016 7:23 AM
[2016-11-21] MEDS: DUONEB (A & A) INH SCH ×3 (07:39→19:02)
[2016-11-21] MEDS: NORVASC PO SCH (08:05)
--- NOTE | 2016-11-21 09:51 | PROGRESS NOTE ---
DATE: 11/21/2016 SUBJECTIVE: This patient was recently extubated yesterday. She states that she is feeling better. I will try to do a bedside swallow evaluation to see if she can tolerate food today. She is not complaining of any specific problem at this moment, just mild throat discomfort. OBJECTIVE: Vital Signs: Temperature 98.6 degrees, pulse 93, respiratory rate 26 blood pressure 126/69. Oxygen saturation 94% on a Ventimask, 15% oxygen flow. General: A 36-year-old female with morbid obesity, in no acute distress. HEENT: Head normocephalic. No trauma. PERRLA. Neck: Supple. I cannot see JVD because of her neck size, obesity. Chest: Decreased breath sounds globally. Cardiovascular: RRR. Abdomen: Soft, nontender, nondistended. No hepatosplenomegaly. Extremities: No edema. No clubbing. No cyanosis. Obese. Neurological examination: The patient is alert and oriented x3. No focal neurological deficits. LABORATORY: WBC 8.8, hemoglobin 10.8, hematocrit 38.8, platelets 232. Sodium 138, potassium 4.2 chloride 90, bicarbonate 38. BUN 17, creatinine 1. Glucose 96, calcium 9.9, albumin 3.7. ASSESSMENT AND PLAN: 1. Acute hypoxemic and hypercapnic respiratory failure. This patient was recently extubated yesterday. She is doing better. She is alert and oriented times 3. She is still requiring high oxygen flow. Pulmonary Department is following this patient. We will continue to monitor. 2. Pulmonary hypertension with cor pulmonale. This patient has been having fluid overload. For now, we will continue with Lasix 40 mg intravenous every 6 hours and we will readjust the dose as needed. 3. Hypertension, stable. Will monitor. 4. Back pain. She is not complaining of back pain at this moment. We will monitor. 5. Diabetes mellitus. Her hemoglobin A1c is 6.3. As per the patient, she has been on metformin before, but she states that she has never been told that she has diabetes. 6. Morbid obesity. Aware. We will try to start feeding this patient, on a healthy diet and diabetic diet. As per the patient, she is ready to loose weight. 7. Physical deconditioning. Once this patient is out of the intensive care unit , we will start this patient on physical therapy. 8. Deep vein thrombosis prophylaxis. Continue with Lovenox. CRITICAL CARE TIME: 35 minutes. cc: Silas Goncalves MD MTDD
[2016-11-21] MEDS: LEVAQUIN 750 MG/D5W 750 MG/150 ML IVPB IV SCH (15:06)
[2016-11-21] MEDS ORDERED: BLISTEX MEDICATED BERRY LIP BALM TOP PRN (19:31)
[2016-11-21] MEDS: PROTONIX IV SCH (22:06)
[2016-11-21] MEDS: SODIUM CHLORIDE 0.9% INJ SCH (22:06)
[2016-11-22] MEDS: LOVENOX SUBQ SCH ×2 (04:17→15:47)
[2016-11-22 04:18] LABS: ALLEN TEST YES; BE 17.7 mmoll (-3.0-3.0); BLOOD TYPE ARTERIAL; DRAW SITE L RADIAL; METHB 0.9 % (0.0-1.5); O2(CT) 15.7 mL/dL (15.0-23.0); PO2(98.6) 115 mmHg (60-100); SAMPLE BLOOD; THB 11.5 g/dL (11.5-17.4); pH(98.6) 7.29 (7.35-7.45)
[2016-11-22 04:19] LABS: MODALITY BI PAP; PCO2(98.6) 101 mmHg (35-45)
[2016-11-22 05:25] LABS: AGAP 11; BUN 22 mg/dL (8-22); CALCIUM 9.9 mg/dL (8.8-10.2); CHLORIDE 87 mmol/L (98-107); COSMO 278; POTASSIUM 3.9 mmol/L (3.5-5.1); SODIUM 138 mmol/L (136-145); TCO2 40 mmol/L (25-35)
[2016-11-22] MEDS: LASIX IV SCH ×3 (05:42→17:16)
[2016-11-22] MEDS: MORPHINE IV PRN (05:42)
--- NOTE | 2016-11-22 07:35 | Diag Imaging Result Doc PS360 ---
CHEST-PORTABLE - 11/22/2016 INDICATION: vent, follow up TECHNIQUE: COMPARISON: 11/21/2016 FINDINGS: Stable right PICC line in good position. Stable severe cardiomegaly with pulmonary vascular congestion. No significant infiltrates or edema. Lung volumes remain severely low. IMPRESSION: No change from prior. Electronically signed by Jackson Vyas 11/22/2016 7:33 AM
[2016-11-22] MEDS: NORVASC PO SCH (08:24)
[2016-11-22] MEDS: DUONEB (A & A) INH SCH ×3 (09:12→19:42)
[2016-11-22 09:51] LABS: ALLEN TEST YES; BE 19.2 mmoll (-3.0-3.0); BLOOD TYPE ARTERIAL; DRAW SITE R RADIAL; METHB 0.6 % (0.0-1.5); O2(CT) 14.6 mL/dL (15.0-23.0); PO2(98.6) 93 mmHg (60-100); SAMPLE BLOOD; THB 10.7 g/dL (11.5-17.4)
[2016-11-22 09:52] LABS: MODALITY BI PAP
[2016-11-22 09:53] LABS: PCO2(98.6) 101 mmHg (35-45)
--- NOTE | 2016-11-22 10:09 | PROGRESS NOTE ---
DATE: 11/22/2016 SUBJECTIVE: This patient is using a BiPAP machine right now. As per the patient, she is not having shortness of breath but she has generalized weakness. She is following commands and answering my questions properly. OBJECTIVE: Vital Signs: Temperature 97.8 degrees, pulse 95, respiratory rate 22, blood pressure 108/60, oxygen saturation 95% on BiPAP. HEENT: Head normocephalic. No trauma. PERRLA. Neck: Supple. I cannot see JVD because of her neck size, obesity. Chest: Decreased breath sounds globally. Cardiovascular: RRR. Abdomen: Soft, nontender, nondistended. No hepatosplenomegaly. Obese. Extremities: No edema. No clubbing. No cyanosis. Neurological: The patient is alert. She is following commands. She is moving all 4 extremities. She is answering my questions. LABORATORY: ABGs, pH 7.29, pCO2 101, PO2 115, bicarbonate 38.7. Sodium 138, potassium 3.8, chloride 87, bicarbonate 40, BUN 22, creatinine 0.9, glucose 87, calcium 9.9, magnesium 2. ASSESSMENT AND PLAN: 1. Probably acute on chronic hypercapnic respiratory failure. This patient was recently extubated a couple days ago. She is using the BiPAP machine. Today her CO2 elevated to 101, so we are going to continue with the BiPAP machine. Pulmonary department is following this patient closely. Continue to monitor. 2. Pulmonary hypertension with cor pulmonale. Patient has been having fluid overload. For now will continue with IV Lasix. Continue with diuresis. We have a negative balance of 2.3 L. The kidney function is normal today. 3. Hypertension, stable. Will monitor. 4. Back pain. She is not complaining of back pain at this moment. We will monitor. 5. Diabetes mellitus. Her hemoglobin A1c is 6.3. I do not think she has been treated for this problem before even though she has been on metformin. As per the patient, the Metformin is to lose weight. 6. Morbid obesity. Aware. She is on a diet but she cannot eat at this moment because of the BiPAP machine. Once she is better we will restart the diet. 7. Physical deconditioning. Once this patient is out of the intensive care unit will start this patient on physical therapy. 8. Deep vein thrombosis prophylaxis. Will continue with Lovenox. CRITICAL CARE TIME: 35 minutes. cc: Silas Goncalves MD
[2016-11-22] MEDS: LEVAQUIN 750 MG/D5W 750 MG/150 ML IVPB IV SCH (15:47)
[2016-11-22] MEDS: SODIUM CHLORIDE 0.9% INJ SCH (21:37)
[2016-11-22] MEDS: PROTONIX IV SCH (21:37)
[2016-11-23] MEDS: LASIX IV SCH ×4 (01:13→19:45)
[2016-11-23 04:40] LABS: ALLEN TEST YES; BE 20.4 mmoll (-3.0-3.0); BLOOD TYPE ARTERIAL; DRAW SITE R RADIAL; METHB 1.2 % (0.0-1.5); O2(CT) 15.4 mL/dL (15.0-23.0); PO2(98.6) 116 mmHg (60-100); SAMPLE BLOOD; SAO2 98.8 % (95.0-100.0); THB 11.3 g/dL (11.5-17.4); pH(98.6) 7.37 (7.35-7.45)
[2016-11-23 04:41] LABS: MODALITY BI PAP; PCO2(98.6) 86 mmHg (35-45)
[2016-11-23] MEDS: LOVENOX SUBQ SCH ×2 (04:49→15:14)
[2016-11-23 05:22] LABS: BASO% 0.1 % (0.0-0.8); EOS# 0.07 X1000 (0.0-0.7); EOS% 0.7 % (0.0-10.0); HEMATOCRIT 38.6 % (37.0-47.0); HEMOGLOBIN 10.5 g/dL (12.0-16.0); IMM GRAN# 0.03 X1000 (0.0-0.04); IMM GRAN% 0.3 % (0.0-0.5); LYMPH# 1.47 X1000 (1.2-3.4); MANUAL DIFF NEEDED? NO; MCH 21.3 PG (27-31); MCHC 27.2 g/dL (33-37); MCV 78.5 FL (81-99); MONO# 1.01 X1000 (0.11-0.59); MONO% 10.3 % (1.7-9.3); NEUT% 73.6 % (42.2-75.2); PLT 268 X1000 (130-400); RBC 4.92 XMIL (4.2-5.4)
[2016-11-23 06:03] LABS: AGAP 12; BUN 25 mg/dL (8-22); CALCIUM 9.6 mg/dL (8.8-10.2); CHLORIDE 84 mmol/L (98-107); COSMO 281; POTASSIUM 3.7 mmol/L (3.5-5.1); SODIUM 139 mmol/L (136-145); TCO2 43 mmol/L (25-35)
--- NOTE | 2016-11-23 07:35 | Diag Imaging Result Doc PS360 ---
EXAM: CHEST-PORTABLE INDICATION: vent, follow up TECHNIQUE: One view COMPARISON: 11/22/2016 FINDINGS: Right PICC line is in stable position. There has been slight improvement of interstitial edema and pulmonary venous congestion. There is stable cardiomegaly. No new consolidation is identified. IMPRESSION: Slight improvement of pulmonary venous congestion and edema. Electronically signed by Clovis Angelo 11/23/2016 7:33 AM
[2016-11-23] MEDS: NORVASC PO SCH (08:25)
[2016-11-23] MEDS: DUONEB (A & A) INH SCH ×3 (09:18→19:34)
--- NOTE | 2016-11-23 14:48 | PROGRESS NOTE ---
DATE: 11/23/2016 SUBJECTIVE: This patient has been using the BiPAP machine, every time we tried to wean this patient to a nasal cannula this patient's oxygen saturation decreased. This patient is hungry so I will allow a short period of time to eat and then she needs to use the BiPAP machine again. OBJECTIVE: Vital Signs: Temperature 98.3 degrees, pulse 95, respiratory rate 22, blood pressure 107/75, oxygen saturation 87 on 4 L of nasal cannula. HEENT: Head normocephalic. No trauma. PERRLA. Neck: Supple. I cannot see a JVD because of her neck size, obesity. Chest: Decreased breath sounds globally. Cardiovascular: RRR. Abdomen: Soft, nontender, nondistended. Obese. Extremities: 1+ lower extremity edema. No clubbing. No cyanosis. Neurological: The patient is alert. She is oriented. She is following commands. She is moving all 4 extremities. She is answering all my questions. LABORATORY: WBC 9.8, hemoglobin 10.5, hematocrit 38.6, platelets 268,000. Sodium 139, potassium 3.7, chloride 84, bicarbonate 43, BUN 25, creatinine 0.9, glucose 88, calcium 9.6. ASSESSMENT AND PLAN: 1. Acute on chronic hypercapnic respiratory failure. This patient was extubated a few days ago, she is still using the BiPAP machine. Her CO2 has been elevated, I will allow a grief period of time so she can eat and then we need to put her back on the BiPAP machine. Pulmonary department is following this patient. Continue to monitor. 2. Pulmonary hypertension with cor pulmonale. Patient has been having fluid overload. For now we will continue with IV Lasix but I will decrease the IV Lasix from every 6 hours to every 12 hours. Her BUN has been increasing slowly, today is 25, her creatinine is normal. 3. Back pain. She is not complaining of back pain at this moment. We will monitor. 4. Diabetes mellitus. Her hemoglobin A1c is 6.3. She has been on metformin before. As per the patient, she has been taking this treatment to lose weight, not because she has diabetes. 5. Morbid obesity. Aware. Continue with the same diet. 6. Physical deconditioning. Physical therapy has been consulted. 7. Deep vein thrombosis prophylaxis. Continue with Lovenox. CRITICAL CARE TIME: 35 minutes. cc: Silas Goncalves MD MTDD
[2016-11-23] MEDS: LEVAQUIN 750 MG/D5W 750 MG/150 ML IVPB IV SCH (15:14)
[2016-11-23] MEDS: PROTONIX IV SCH (21:14)
[2016-11-23] MEDS: SODIUM CHLORIDE 0.9% INJ SCH (21:14)
[2016-11-24] MEDS: LOVENOX SUBQ SCH ×2 (03:07→15:43)
[2016-11-24 05:06] LABS: BASO% 0.2 % (0.0-0.8); EOS# 0.09 X1000 (0.0-0.7); EOS% 0.9 % (0.0-10.0); HEMATOCRIT 37.6 % (37.0-47.0); HEMOGLOBIN 10.4 g/dL (12.0-16.0); IMM GRAN# 0.03 X1000 (0.0-0.04); IMM GRAN% 0.3 % (0.0-0.5); LYMPH% 19.1 % (20.5-51.1); MANUAL DIFF NEEDED? NO; MCH 21.4 PG (27-31); MCHC 27.7 g/dL (33-37); MCV 77.4 FL (81-99); MONO# 0.92 X1000 (0.11-0.59); MONO% 9.2 % (1.7-9.3); MPV 8.8 FL (7.4-10.4); NEUT% 70.3 % (42.2-75.2); PLT 254 X1000 (130-400); RBC 4.86 XMIL (4.2-5.4)
[2016-11-24 05:36] LABS: AGAP 13; BUN 29 mg/dL (8-22); CALCIUM 10.5 mg/dL (8.8-10.2); CHLORIDE 84 mmol/L (98-107); COSMO 284; POTASSIUM 3.4 mmol/L (3.5-5.1); SODIUM 139 mmol/L (136-145); TCO2 42 mmol/L (25-35)
--- NOTE | 2016-11-24 07:34 | Diag Imaging Result Doc PS360 ---
EXAM: CHEST-PORTABLE HISTORY: vent, follow up TECHNIQUE: AP portable at 0500 COMMENT: Compared to the previous study of 11/23/2016 there is increasing opacification in the lower lung constantino consistent with pulmonary edema. IMPRESSION: Worsened pulmonary edema. Electronically signed by Merlin Plummer 11/24/2016 7:32 AM
[2016-11-24] MEDS: DUONEB (A & A) INH SCH ×3 (07:40→19:35)
[2016-11-24 08:07] LABS: ALLEN TEST YES; BE 25.1 mmoll (-3.0-3.0); BLOOD TYPE ARTERIAL; DRAW SITE R RADIAL; METHB 1.5 % (0.0-1.5); O2(CT) 13.3 mL/dL (15.0-23.0); SAMPLE BLOOD; SAO2 85.5 % (95.0-100.0); THB 11.5 g/dL (11.5-17.4); pH(98.6) 7.44 (7.35-7.45)
[2016-11-24 08:09] LABS: MODALITY CANNULA; PCO2(98.6) 79 mmHg (35-45); PO2(98.6) 46 mmHg (60-100)
[2016-11-24] MEDS ORDERED: KLOR-CON PO ONE (08:34)
[2016-11-24] MEDS: NORVASC PO SCH (09:14)
[2016-11-24] MEDS: LASIX IV SCH ×3 (09:14→20:32)
--- NOTE | 2016-11-24 14:19 | PROGRESS NOTE ---
DATE: 11/24/2016 SUBJECTIVE: This patient looks a little bit better today. She is still using the BiPAP machine, she is tolerating p.o., Pulmonary Department is following this patient closely. OBJECTIVE: Vital Signs: Temperature 98.5 degrees, pulse 88, respiratory rate 27, blood pressure 122/86, oxygen saturation 94% on BiPAP 60% FiO2. HEENT: Head normocephalic. No trauma. PERRLA. Neck: I cannot see a JVD because of her neck size, obesity. Chest: Decreased breath sounds globally mostly at the bases. Cardiovascular: RRR. Abdomen: Soft, nontender, nondistended, obese. Extremities: 1+ lower extremity edema. No clubbing. No cyanosis. Neurological: This patient is alert. She is oriented x3. She is following commands. She is moving all 4 extremities. LABORATORY: WBC 9.9, hemoglobin 10.4, hematocrit 37.6, platelets 254,000. Sodium 139, potassium 3.4, chloride 84, bicarbonate 42, BUN 29, creatinine 0.9, glucose 116, calcium 7.5. ASSESSMENT AND PLAN: 1. Acute on chronic hypercapnic respiratory failure. This patient was extubated a few days ago. She is still using the BiPAP machine. Her CO2 has been elevated but compared with the previous days is a little bit better. Pulmonary Department following this patient closely. Continue to monitor. 2. Pulmonary hypertension with cor pulmonale. Continue with Lasix. Today the chest x-ray showed worsening pulmonary edema so I will increase the dose of IV Lasix from 40 IV q.12 hours to 40 IV q.6 hours. 3. Back pain. She is not complaining of back pain at this moment. We will monitor. 4. Diabetes mellitus. Her hemoglobin A1c is 6.3, she has been taking metformin before, as per the patient, she has been taking this treatment to lose weight, not because of her diabetes. 5. Morbid obesity. Aware. Continue with the same diet. 6. Physical deconditioning. Physical Therapy has been consulted. 7. Deep venous thrombosis prophylaxis. Continue with Lovenox. 8. Hypokalemia. I will replace the potassium. CRITICAL CARE TIME: 35 minutes. cc: Silas Goncalves MD
[2016-11-24] MEDS: LEVAQUIN 750 MG/D5W 750 MG/150 ML IVPB IV SCH (15:43)
[2016-11-24] MEDS: PROTONIX IV SCH (22:23)
[2016-11-24] MEDS: SODIUM CHLORIDE 0.9% INJ SCH (22:23)
[2016-11-25] MEDS: LASIX IV SCH ×4 (03:57→18:16)
[2016-11-25] MEDS: LOVENOX SUBQ SCH ×2 (03:57→18:16)
[2016-11-25 06:53] LABS: AGAP 7; BUN 31 mg/dL (8-22); CALCIUM 9.8 mg/dL (8.8-10.2); CHLORIDE 84 mmol/L (98-107); COSMO 278; SODIUM 135 mmol/L (136-145); TCO2 44 mmol/L (25-35)
--- NOTE | 2016-11-25 07:12 | Diag Imaging Result Doc PS360 ---
EXAM: CHEST-PORTABLE HISTORY: vent, follow up TECHNIQUE: AP portable at 0500 COMMENT: There is cardiomegaly. Compared to the previous study of 11/24/2016 there has been some clearing of the right base. No additional findings are present. IMPRESSION: Improved pulmonary edema. Electronically signed by Merlin Plummer 11/25/2016 7:09 AM
[2016-11-25] MEDS: DUONEB (A & A) INH SCH ×3 (08:18→20:00)
[2016-11-25] MEDS ORDERED: KLOR-CON PO ONE (08:24)
[2016-11-25] MEDS: NORVASC PO SCH (09:25)
[2016-11-25] MEDS ORDERED: AYR NASAL SPRAY NAS PRN (09:29)
--- NOTE | 2016-11-25 11:39 | PROGRESS NOTE ---
DATE: 11/25/2016 SUBJECTIVE: This patient looks better today. She is using the nasal cannula and she is tolerating it he her O2 saturation has been above 90. She is tolerating p.o. as well. Since this patient looks better, I will transfer this patient to the floor. OBJECTIVE: Vital Signs: Temperature 97.5 degrees, pulse respiratory rate 18, blood pressure 141/95, oxygen saturation 96 on 6 L of nasal cannula. HEENT: Normocephalic. No trauma. PERRLA. Neck: I cannot see JVD because of her neck size, obesity. Chest: Decreased breath sounds globally mostly at the bases. Cardiovascular: RRR. Abdomen: Soft, nontender, nondistended. Obese. Extremities: With 1+ lower extremity edema. No clubbing. No cyanosis. Neurologic: This patient is alert. She is oriented x3. She is following commands. She is moving all 4 extremities. LABORATORY: Sodium 135, potassium 3., chloride 84, bicarbonate 44, BUN 31, creatinine 1, glucose 127, calcium 9.8. ASSESSMENT AND PLAN: 1. Acute on chronic hypercapnic respiratory failure. This patient was extubated a few days ago. She has been using the BiPAP machine. At this moment, she is on nasal cannula. She is completely alert and oriented x3. No respiratory distress. I will transfer this patient to the floor. Pulmonary Department following this patient. 2. Pulmonary hypertension with cor pulmonale. Continue with Lasix. Chest x-ray today is better with improvement of the pulmonary edema, the dose of Lasix has been decreased from 40 q.6 hours to 40 q.8 hours. We will continue to monitor. 3. Hypokalemia, I will replace the potassium. This is likely secondary to her treatment with Lasix. 4. Back pain. She is not complaining of back pain at this moment. We will monitor. 5. Type 2 diabetes. Her hemoglobin A1c is 6.3, she has been taking Metformin before. As per the patient, she has been taking this treatment to lose weight not because of her diabetes. 6. Morbid obesity, aware. Continue with the same diet. 7. Physical deconditioning. Continue with physical therapy. 8. Deep vein thrombosis prophylaxis with Lovenox . CRITICAL CARE TIME: 35 minutes. cc: Silas Goncalves MD
[2016-11-25] MEDS ORDERED: TEARISOL OPH SOLUTION BOTH EYES PRN (14:08)
[2016-11-25] MEDS ORDERED: MOTRIN PO ONE (14:51)
[2016-11-25 18:17] LABS: ALLEN TEST YES; BE 23.4 mmoll (-3.0-3.0); BLOOD TYPE ARTERIAL; DRAW SITE R RADIAL; METHB 0.9 % (0.0-1.5); O2(CT) 14.7 mL/dL (15.0-23.0); PO2(98.6) 68 mmHg (60-100); SAMPLE BLOOD; SAO2 95.9 % (95.0-100.0); THB 11.2 g/dL (11.5-17.4); pH(98.6) 7.47 (7.35-7.45)
[2016-11-25] MEDS: LEVAQUIN 750 MG/D5W 750 MG/150 ML IVPB IV SCH (18:17)
[2016-11-25 18:18] LABS: MODALITY CANNULA
[2016-11-25 18:20] LABS: PCO2(98.6) 70 mmHg (35-45)
[2016-11-25] MEDS: PROTONIX IV SCH (22:44)
[2016-11-25] MEDS: SODIUM CHLORIDE 0.9% INJ SCH (22:45)
[2016-11-26] MEDS: LASIX IV SCH (01:42)
[2016-11-26 04:44] LABS: ALLEN TEST YES; BE 22.3 mmoll (-3.0-3.0); BLOOD TYPE ARTERIAL; DRAW SITE L RADIAL; METHB 1.3 % (0.0-1.5); O2(CT) 14.6 mL/dL (15.0-23.0); PO2(98.6) 65 mmHg (60-100); SAMPLE BLOOD; SAO2 94.5 % (95.0-100.0); THB 11.3 g/dL (11.5-17.4); pH(98.6) 7.44 (7.35-7.45)
[2016-11-26 04:45] LABS: MODALITY CANNULA
[2016-11-26 04:46] LABS: PCO2(98.6) 74 mmHg (35-45)
[2016-11-26] MEDS: LOVENOX SUBQ SCH ×2 (05:00→17:18)
[2016-11-26 07:02] LABS: BASO% 0.3 % (0.0-0.8); EOS# 0.07 X1000 (0.0-0.7); EOS% 0.8 % (0.0-10.0); HEMATOCRIT 36.2 % (37.0-47.0); HEMOGLOBIN 10.3 g/dL (12.0-16.0); IMM GRAN# 0.03 X1000 (0.0-0.04); IMM GRAN% 0.3 % (0.0-0.5); LYMPH# 2.29 X1000 (1.2-3.4); LYMPH% 24.8 % (20.5-51.1); MANUAL DIFF NEEDED? YES; MCH 21.6 PG (27-31); MCHC 28.5 g/dL (33-37); MCV 75.9 FL (81-99); MONO# 0.88 X1000 (0.11-0.59); MONO% 9.5 % (1.7-9.3); MPV 9.1 FL (7.4-10.4); NEUT% 64.3 % (42.2-75.2); PLT 241 X1000 (130-400); RBC 4.77 XMIL (4.2-5.4)
--- NOTE | 2016-11-26 07:09 | Diag Imaging Result Doc PS360 ---
EXAM: CHEST-PORTABLE HISTORY: vent, follow up TECHNIQUE: AP portable at 0500 COMMENT: There is a PICC line on the right with its tip in the right atrium. The costophrenic angles are not included on the image. The heart size is enlarged. There is probable interstitial pulmonary edema. IMPRESSION: Cardiomegaly and pulmonary edema. Electronically signed by Merlin Plummer 11/26/2016 7:07 AM
[2016-11-26 07:20] LABS: AGAP 13; BUN 31 mg/dL (8-22); CALCIUM 9.5 mg/dL (8.8-10.2); CHLORIDE 85 mmol/L (98-107); COSMO 285; POTASSIUM 3.3 mmol/L (3.5-5.1); SODIUM 139 mmol/L (136-145); TCO2 41 mmol/L (25-35)
[2016-11-26] MEDS ORDERED: KLOR-CON PO ONE (07:30)
[2016-11-26] MEDS: NORVASC PO SCH (09:57)
[2016-11-26] MEDS: LASIX PO SCH (10:01)
[2016-11-26] MEDS: DUONEB (A & A) INH SCH (10:30)
--- NOTE | 2016-11-26 11:01 | PROGRESS NOTE ---
DATE: 11/26/2016 SUBJECTIVE: This patient looks better today. She is using her nasal cannula and the oxygen saturation has been above 90. She is tolerating p.o. as well. I have switched the IV Lasix to p.o. Lasix, and I will monitor this for at least 24 hours. She has hypokalemia. I will replace the potassium as well. OBJECTIVE: Vital Signs: Temperature 98.3 degrees, pulse 91, respiratory rate 20, blood pressure 123/80, oxygen saturation 95% on 3 L of nasal cannula. HEENT: Head normocephalic. No trauma. PERRLA. Neck: I cannot see JVD because of her neck size, obesity. Chest: Decreased breath sounds globally, mostly at the bases. Cardiovascular: RRR. Abdomen: Soft, nontender, nondistended. Obese. Extremities: There is 1+ lower extremity edema. No clubbing. No cyanosis. Neurological Examination: The patient is alert. She is oriented x3. She is following commands. She has generalized weakness. She is moving all 4 extremities. Laboratory: WBC 9.2, hemoglobin 10.3, hematocrit 36.2, platelets 241,000. PCO2 of 74. Sodium 139, potassium 3.3, chloride 95, bicarbonate 41, BUN 31, creatinine 1, glucose 113, calcium 9.5. ASSESSMENT AND PLAN: 1. Acute on chronic hypercapnic respiratory failure. This patient's CO2 is still elevated. Probably this is her baseline. Pulmonary department is following this patient. Oxygen saturation has been stable with nasal cannula. 2. Pulmonary hypertension with cor pulmonale. Continue with Lasix but I will switch the intravenous Lasix to oral Lasix. I will monitor her urine output and creatinine for the next 24 hours. 3. Hypokalemia. I will replace the potassium today. 4. Back pain. She is not complaining of back pain at this moment. We will monitor. 5. Type 2 diabetes. Hemoglobin A1c is 6.3. She has been taking metformin before. As per the patient, the metformin was to loose weight, not because of her diabetes. Actually, she did not know that she has diabetes mellitus. 6. Morbid obesity. Aware. Continue with the same diet. 7. Physical deconditioning. Continue with physical therapy. 8. Deep vein thrombosis prophylaxis with Lovenox. cc: Silas Goncalves MD
[2016-11-26] MEDS: LEVAQUIN 750 MG/D5W 750 MG/150 ML IVPB IV SCH (17:18)
[2016-11-27] MEDS: LASIX PO SCH ×2 (01:04→08:53)
[2016-11-27] MEDS: PROTONIX IV SCH (01:05)
[2016-11-27] MEDS: LOVENOX SUBQ SCH (04:25)
[2016-11-27 08:15] LABS: AGAP 12; BUN 30 mg/dL (8-22); CALCIUM 9.5 mg/dL (8.8-10.2); CHLORIDE 84 mmol/L (98-107); COSMO 281; POTASSIUM 3.3 mmol/L (3.5-5.1); SODIUM 136 mmol/L (136-145); TCO2 40 mmol/L (25-35)
[2016-11-27] MEDS: DUONEB (A & A) INH SCH ×2 (08:38)
[2016-11-27] MEDS: NORVASC PO SCH (08:53)
[2016-11-27 09:29] VITALS: BP 106/58
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
== END 2016-11-27 13:30 | disposition home or self-care (01) ==
LOC: P.ED 22:01 → SUATTDRO 11-15 00:56 → P.MEDSURG 11-15 00:56 → P.ICU 11-16 15:02 → ICU 11-16 19:11 → 3N 11-25 13:33
PROVIDERS: ATTEND Internal Medicine